=== PATIENT | female | born 1985 | race Caucasian/White ===

== ENCOUNTER → 2023-12-07 13:51 | Outpatient (BNVA) | payer BC, SELFPAY | PROVIDERS: Family Provider Nurse Practitioner; PCP Nurse Practitioner; Visit Provider Nurse Practitioner Family | DX: Z00.00 Encounter for general adult medical examination without abnormal findings (principal) | CPT/HCPCS: 80053; 80061; 81003; 82306; 83036; 84443; 85025 ==